=== PATIENT | male | born 2000 | race Caucasian/White ===

== ENCOUNTER 2020-01-03 19:58 | Emergency (ER) | payer OTHER, SELFPAY ==
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
[2020-01-03] MEDS ORDERED: Lidocaine 1% PF 5 ML VIAL ONE (21:57)
[2020-01-03] MEDS ORDERED: Lidocaine 1% (PF) 30 ML VIAL ONE (22:54)
[2020-01-03] MEDS ORDERED: Adacel (T-DAP) 0.5 ML SYRINGE ONE (23:05)
== END 2020-01-03 23:26 | disposition home or self-care (01) ==
LOC: ERS 19:58
DX: S01.311A Laceration without foreign body of right ear, initial encounter (principal); S10.91XA Abrasion of unspecified part of neck, initial encounter; S09.90XA Unspecified injury of head, initial encounter; F17.290 Nicotine dependence, other tobacco product, uncomplicated; Z23 Encounter for immunization; Y04.0XXA Assault by unarmed brawl or fight, initial encounter
CPT/HCPCS: 12011; 70450; 70486; 90471; 90715; J2001

== ENCOUNTER 2021-01-28 07:14 | Emergency (ER) | payer SELFPAY | END 2021-01-28 07:35 | disposition home or self-care (01) | LOC: ERS 07:14 | DX: J02.9 Acute pharyngitis, unspecified (principal) | CPT/HCPCS: 99281 ==

== ENCOUNTER 2021-09-01 18:22 | Emergency (ER) | payer SELFPAY | END 2021-09-01 19:18 | disposition home or self-care (01) | LOC: ERS 18:22 | DX: G43.909 Migraine, unspecified, not intractable, without status migrainosus (principal) | CPT/HCPCS: 99283 ==

== ENCOUNTER 2021-09-30 13:56 | Emergency (ER) | payer SELFPAY | END 2021-09-30 15:34 | disposition home or self-care (01) | LOC: ERS 13:56 | DX: J02.9 Acute pharyngitis, unspecified (principal) | CPT/HCPCS: 87081; 87430; 99283 ==

== ENCOUNTER 2022-09-04 16:33 | Emergency (ER) | payer SELFPAY ==
[2022-09-04] MEDS ORDERED: Ketorolac Tromethamine 30 MG/ML VIAL ONE (17:47)
== END 2022-09-04 18:19 | disposition home or self-care (01) ==
LOC: ERS 16:33
DX: M25.511 Pain in right shoulder (principal)
CPT/HCPCS: 96372; J1885

== ENCOUNTER 2024-11-24 09:20 | Emergency (ER) | payer SELFPAY | END 2024-11-24 10:19 | disposition home or self-care (01) | LOC: ERS 09:20 | DX: J06.9 Acute upper respiratory infection, unspecified (principal); F17.290 Nicotine dependence, other tobacco product, uncomplicated | CPT/HCPCS: 87081; 87428; 87430; 99283 ==